=== PATIENT | male | born 1965 | race Caucasian/White ===

== ENCOUNTER 2018-04-14 13:25 | Emergency (ER) | payer MEDICARE, MEDICAID ==
[~2018-04-14] VITALS: Ht 172.7 cm; Wt 113.6 kg
[~2018-04-14 13:25] MED LIST: ALBU8.5H8 INH; CYCL-1 PO; FURO-149 PO; HYDR-565 PO; HYDR-569 PO; LEVA15HF4 INH; LORA1TAB PO; METH-360 PO; METH-603 PO; ONDA8TAB6 PO; POTA20TA19 PO; QUET-1 PO; SPIR25TA PO
[2018-04-14 20:01] VITALS: BP 131/80
[2018-04-14] MEDS ORDERED: levetiracetam 250mg tablet PO ONE (20:05)
[2018-04-14] MEDS ORDERED: ketorolac trometh inj. 60 MG/2 ML VIAL IM ONE (20:05)
[2018-04-14] MEDS ORDERED: AZIT500T5 PO (21:08)
== END 2018-04-14 21:26 | disposition home or self-care (01) ==
LOC: ER 13:26
DX: R55 Syncope and collapse (principal); I50.9 Heart failure, unspecified; G89.29 Other chronic pain; J44.9 Chronic obstructive pulmonary disease, unspecified; Z98.890 Other specified postprocedural states; Z79.899 Other long term (current) drug therapy
CPT/HCPCS: 71045; 93005; 96372; 99284; J1885

== ENCOUNTER 2018-08-18 11:54 | Emergency (ER) | payer MEDICARE, MEDICAID ==
[~2018-08-18] VITALS: Ht 170.2 cm; Wt 105.0 kg
[~2018-08-18 11:54] MED LIST changes: +AZIT500T5 PO
[2018-08-18] MEDS ORDERED: AMOX-422 PO (12:38)
[2018-08-18 12:48] VITALS: BP 132/82
== END 2018-08-18 12:50 | disposition home or self-care (01) ==
LOC: ER 11:54
DX: J06.9 Acute upper respiratory infection, unspecified (principal); I50.9 Heart failure, unspecified; J44.9 Chronic obstructive pulmonary disease, unspecified; G89.29 Other chronic pain; Z86.19 Personal history of other infectious and parasitic diseases; Z98.890 Other specified postprocedural states; Z79.2 Long term (current) use of antibiotics; Z79.899 Other long term (current) drug therapy
CPT/HCPCS: 99283

== ENCOUNTER 2018-10-30 08:58 | Day surgery (SDC) | payer MEDICARE, MEDICAID ==
[~2018-10-30] VITALS: Ht 170.2 cm; Wt 137.8 kg
[2018-10-30] VITALS (8 sets, daily range): BP systolic 110–137; BP diastolic 56–78
[~2018-10-30 08:58] MED LIST changes: +HYDR-4353 PO; +HYDR-4383 PO; -HYDR-565 PO; -HYDR-569 PO; +LIDOcaine 1% 30ml preserv. free vial SQ STA
[2018-10-30] MEDS ORDERED: albumin (human) 25% 100 ML IV solution IV PRN (09:30)
[2018-10-30] MEDS ORDERED: DULR RC (11:17)
[2018-10-30] MEDS ORDERED: CLON-514 PO (11:17)
[2018-10-30] MEDS ORDERED: FURO-150 PO (11:17)
[2018-10-30] MEDS ORDERED: PHE12.5T PO (11:17)
[2018-10-30] MEDS ORDERED: HYDR-4383 PO (11:17)
[2018-10-30] MEDS ORDERED: ENOX40SY7 SUBCUT (11:17)
[2018-10-30] MEDS ORDERED: NA P133E4 RC (11:17)
[2018-10-30] MEDS ORDERED: QUET200T PO (11:17)
[2018-10-30] MEDS ORDERED: POLY17PO10 PO (11:17)
[2018-10-30] MEDS ORDERED: METH-603 PO (11:17)
[2018-10-30] MEDS ORDERED: METH113C20 TOP (11:17)
[2018-10-30] MEDS ORDERED: DOCU-20 PO (11:17)
[2018-10-30] MEDS ORDERED: MAG355OR18 PO (11:17)
[2018-10-30] MEDS ORDERED: MAGN400O6 PO (11:17)
== END 2018-10-30 11:30 ==
LOC: SSTAY O 08:58
PROVIDERS: ATTEND Radiology Vascular & Interventional Radiology
DX: R18.8 Other ascites (principal); I50.9 Heart failure, unspecified; J44.9 Chronic obstructive pulmonary disease, unspecified; G89.29 Other chronic pain; G47.33 Obstructive sleep apnea (adult) (pediatric); J45.998 Other asthma; F10.21 Alcohol dependence, in remission; F32.9 Major depressive disorder, single episode, unspecified; F41.8 Other specified anxiety disorders; F19.21 Other psychoactive substance dependence, in remission; Z87.09 Personal history of other diseases of the respiratory system; Z96.641 Presence of right artificial hip joint; Z91.048 Other nonmedicinal substance allergy status; Z79.2 Long term (current) use of antibiotics; Z87.01 Personal history of pneumonia (recurrent); Z86.19 Personal history of other infectious and parasitic diseases; Z79.891 Long term (current) use of opiate analgesic; Z86.69 Personal history of other diseases of the nervous system and sense organs; Z87.891 Personal history of nicotine dependence; Z86.14 Personal history of Methicillin resistant Staphylococcus aureus infection; Z79.899 Other long term (current) drug therapy; Z98.890 Other specified postprocedural states; Z82.49 Family history of ischemic heart disease and other diseases of the circulatory system
CPT/HCPCS: 49083; J3490; P9047

== ENCOUNTER 2018-11-04 09:11 | Emergency (ER) | payer MEDICARE, MEDICAID ==
[~2018-11-04] VITALS: Ht 162.6 cm; Wt 139.0 kg
[~2018-11-04 09:11] MED LIST changes: -ALBU8.5H8 INH; -AZIT500T5 PO; +CLON-514 PO; -CYCL-1 PO; +DOCU-20 PO; +DULR RC; +ENOX40SY7 SUBCUT; -FURO-149 PO; +FURO-150 PO; -HYDR-4353 PO; -LIDOcaine 1% 30ml preserv. free vial SQ STA; -LORA1TAB PO; +MAG355OR18 PO; +MAGN400O6 PO; -METH-360 PO; +METH113C20 TOP; +NA P133E4 RC; -ONDA8TAB6 PO; +PHE12.5T PO; +POLY17PO10 PO; -POTA20TA19 PO; +QUET200T PO
[2018-11-04 09:41] LABS: BASOPHILS % (AUTO) 0.7 % (0-1); EOSINOPHILS # (AUTO) 0.1 X10'3 (0-0.9); EOSINOPHILS % (AUTO) 3.6 % (0-6); HEMATOCRIT 31.9 % (42.0-52.0); HEMOGLOBIN 10.4 g/dl (14.0-17.9); LYMPHOCYTES # (AUTO) 0.5 X10'3 (1.1-4.8); LYMPHOCYTES % (AUTO) 25.7 % (21-51); MEAN CORPUSCULAR HEMOGLOBIN 31.9 PG (27.0-31.0); MEAN CORPUSCULAR HGB CONC 32.6 % (33.0-36.5); MEAN CORPUSCULAR VOLUME 98.1 FL (78-98); MEAN PLATELET VOLUME 7.8 FL (7.4-10.4); MONOCYTES # (AUTO) 0.3 X10'3 (0-0.9); MONOCYTES % (AUTO) 13.3 % (2-12); NEUTROPHILS # (AUTO) 1.1 X10'3 (1.8-7.7); NEUTROPHILS % (AUTO) 56.7 % (42-75); PLATELET COUNT 62 X10'3 (140-440); RED BLOOD COUNT 3.25 X10'6 (4.70-6.10); RED CELL DISTRIBUTION WIDTH 16.3 % (11.5-14.5); WHITE BLOOD COUNT 1.9 X10'3 (4.5-11.0)
[2018-11-04] MEDS ORDERED: morphine 4 MG/ML inj SYRINge IM ONE (09:45)
[2018-11-04 09:55] LABS: ALANINE AMINOTRANSFERASE 8 U/L (12-78); ALBUMIN/GLOBULIN RATIO 0.4 (1.1-1.5); ALKALINE PHOSPHATASE 99 IU/L (46-116); ANION GAP 3 (8-16); ASPARTATE AMINO TRANSFERASE 16 U/L (10-37); CALCIUM 7.6 MG/DL (8.5-10.1); CHLORIDE 105 MMOL/L (99-107); LIPASE 161 U/L (73-393); POTASSIUM 3.4 MMOL/L (3.5-5.1); SODIUM 141 MMOL/L (135-145); TOTAL CARBON DIOXIDE 32.6 MMOL/L (24-32); TOTAL PROTEIN 6.5 G/DL (6.4-8.2)
[2018-11-04 10:01] LABS: BLOOD UREA NITROGEN 11 MG/DL (7-18); BUN/CREATININE RATIO 13.4 (5.4-32.0); CREATININE 0.82 MG/DL (0.60-1.10); GLUCOSE 99 MG/DL (70-104); eGFR > 90 ML/MIN
[2018-11-04 10:02] LABS: TOTAL CELLS COUNTED 100
[2018-11-04 10:03] LABS: PLATELET ESTIMATE DECREASED
[2018-11-04] MEDS ORDERED: LIDOcaine 1.5% w/epinephrine 1:200,000 5ml ampul IJ ONE (10:15)
[2018-11-04] MEDS ORDERED: LIDOcaine 1% w/epiNEPHrine 1:200,000 30ml vial IJ ONE (10:20)
[2018-11-04] MEDS ORDERED: HYDROcodone/acetaminophen 10/325mg tab PO ONE (10:40)
[2018-11-04] MEDS ORDERED: methadone 10mg tablet PO ONE (10:40)
[2018-11-04 11:59] VITALS: BP 129/62
[2018-11-06] MEDS ORDERED: LIDOcaine 1% 30ml preserv. free vial SQ STA (08:23)
== END 2018-11-04 12:00 | disposition home or self-care (01) ==
LOC: ER 09:11
DX: R18.8 Other ascites (principal); D61.818 Other pancytopenia; M25.551 Pain in right hip; L85.9 Epidermal thickening, unspecified; I50.9 Heart failure, unspecified; J44.9 Chronic obstructive pulmonary disease, unspecified; G89.29 Other chronic pain; Z86.19 Personal history of other infectious and parasitic diseases; Z79.899 Other long term (current) drug therapy; Z96.641 Presence of right artificial hip joint
CPT/HCPCS: 36415; 49083; 80053; 83690; 85025; 96372; 99285; J2270; J3490

== ENCOUNTER 2018-11-06 08:36 | Day surgery (SDC) | payer MEDICARE, MEDICAID ==
[2018-11-06] VITALS (8 sets, daily range): BP systolic 114–124; BP diastolic 62–80
[~2018-11-06] VITALS: Ht 170.2 cm; Wt 117.9 kg
[2018-11-06] MEDS ORDERED: albumin (human) 25% 100 ML IV solution IV PRN (09:20)
[2018-11-06] MEDS ORDERED: normal saline 1000ml 1,000 ML IV PRN (09:20)
[2018-11-06] MEDS ORDERED: oxyCODONE IR 5mg (immed. release) tablet PO ONE (09:40)
[2018-11-06] MEDS ORDERED: HYDR-3193 PO (10:52)
== END 2018-11-06 11:17 ==
LOC: SSTAY O 08:36
PROVIDERS: ATTEND Radiology Diagnostic Radiology
DX: R18.8 Other ascites (principal); I50.9 Heart failure, unspecified; J44.9 Chronic obstructive pulmonary disease, unspecified; G89.29 Other chronic pain; F17.210 Nicotine dependence, cigarettes, uncomplicated; G47.33 Obstructive sleep apnea (adult) (pediatric); K74.69 Other cirrhosis of liver; F10.21 Alcohol dependence, in remission; F32.9 Major depressive disorder, single episode, unspecified; F41.8 Other specified anxiety disorders; F19.21 Other psychoactive substance dependence, in remission; Z87.09 Personal history of other diseases of the respiratory system; Z96.641 Presence of right artificial hip joint; Z86.19 Personal history of other infectious and parasitic diseases; Z86.14 Personal history of Methicillin resistant Staphylococcus aureus infection; Z87.01 Personal history of pneumonia (recurrent); Z91.048 Other nonmedicinal substance allergy status; Z79.2 Long term (current) use of antibiotics; Z79.891 Long term (current) use of opiate analgesic; Z86.69 Personal history of other diseases of the nervous system and sense organs; Z98.890 Other specified postprocedural states; Z79.899 Other long term (current) drug therapy; Z82.49 Family history of ischemic heart disease and other diseases of the circulatory system
CPT/HCPCS: 49083; J7030; P9047

== ENCOUNTER 2018-11-23 07:42 | Day surgery (SDC) | payer MEDICARE, MEDICAID ==
[~2018-11-23] VITALS: Ht 170.2 cm; Wt 132.5 kg
[~2018-11-23 07:42] MED LIST changes: -ENOX40SY7 SUBCUT; -FURO-150 PO; +FURO40TA4 PO; -HYDR-4383 PO; +LACT10SO32 PO; -LEVA15HF4 INH; +LIDOcaine 1% 30ml preserv. free vial SQ STA; -NA P133E4 RC; -PHE12.5T PO; -QUET-1 PO
[2018-11-23 07:52] VITALS: BP 128/81
[2018-11-23] MEDS ORDERED: LACT10SO PO (08:01)
[2018-11-23] MEDS ORDERED: FURO-150 PO (08:01)
[2018-11-23] MEDS ORDERED: albumin (human) 25% 100 ML IV solution IV PRN (08:05)
[2018-11-23 08:30] VITALS: BP 129/75
[2018-11-23] MEDS ORDERED: oxyCODONE IR 5mg (immed. release) tablet PO ONE (08:40)
[2018-11-23 08:45] VITALS: BP 121/75
[2018-11-23 08:54] VITALS: BP 132/88
[2018-11-23 08:55] VITALS: BP 132/88
[2018-11-23 09:05] VITALS: BP 128/77
== END 2018-11-23 09:05 | disposition home or self-care (01) ==
LOC: SSTAY O 07:42
PROVIDERS: ATTEND Radiology Diagnostic Radiology
DX: R18.8 Other ascites (principal); K76.89 Other specified diseases of liver; K74.69 Other cirrhosis of liver; J44.9 Chronic obstructive pulmonary disease, unspecified; I50.9 Heart failure, unspecified; G89.29 Other chronic pain; G47.33 Obstructive sleep apnea (adult) (pediatric); F32.9 Major depressive disorder, single episode, unspecified; F17.210 Nicotine dependence, cigarettes, uncomplicated; F10.21 Alcohol dependence, in remission; F19.11 Other psychoactive substance abuse, in remission; Z87.01 Personal history of pneumonia (recurrent); Z86.19 Personal history of other infectious and parasitic diseases; Z91.048 Other nonmedicinal substance allergy status; Z79.2 Long term (current) use of antibiotics; Z79.891 Long term (current) use of opiate analgesic; Z88.1 Allergy status to other antibiotic agents; Z86.69 Personal history of other diseases of the nervous system and sense organs; Z96.641 Presence of right artificial hip joint; Z86.14 Personal history of Methicillin resistant Staphylococcus aureus infection; F41.8 Other specified anxiety disorders; Z98.890 Other specified postprocedural states; Z79.899 Other long term (current) drug therapy; Z82.49 Family history of ischemic heart disease and other diseases of the circulatory system
CPT/HCPCS: 49083; 87070; J3490

== ENCOUNTER 2018-12-07 07:41 | Day surgery (SDC) | payer MEDICARE, MEDICAID ==
[~2018-12-07] VITALS: Ht 170.2 cm; Wt 125.5 kg
[~2018-12-07 07:41] MED LIST changes: +FURO-150 PO; -FURO40TA4 PO; +LACT10SO PO; -LACT10SO32 PO
[2018-12-07 08:00] VITALS: BP 128/69
[2018-12-07] MEDS ORDERED: enoxaparin 100mg/ml syringe SUBCUT ONE (09:05)
[2018-12-07 09:17] VITALS: BP 112/72
[2018-12-07] MEDS ORDERED: albumin 25% 50mL bottle X 2 BOTTLES IV ONE (09:20)
== END 2018-12-07 09:17 | disposition home or self-care (01) ==
LOC: SSTAY O 07:41
PROVIDERS: ATTEND Radiology Vascular & Interventional Radiology
DX: Z53.21 Procedure and treatment not carried out due to patient leaving prior to being seen by health care provider (principal); R18.8 Other ascites; F17.210 Nicotine dependence, cigarettes, uncomplicated; G47.33 Obstructive sleep apnea (adult) (pediatric); J45.998 Other asthma; F10.21 Alcohol dependence, in remission; F32.9 Major depressive disorder, single episode, unspecified; F41.8 Other specified anxiety disorders; F19.21 Other psychoactive substance dependence, in remission; Z91.048 Other nonmedicinal substance allergy status; Z88.1 Allergy status to other antibiotic agents; Z86.69 Personal history of other diseases of the nervous system and sense organs; Z87.09 Personal history of other diseases of the respiratory system; Z87.19 Personal history of other diseases of the digestive system; Z86.19 Personal history of other infectious and parasitic diseases; Z87.39 Personal history of other diseases of the musculoskeletal system and connective tissue; Z96.641 Presence of right artificial hip joint; Z98.890 Other specified postprocedural states; Z79.899 Other long term (current) drug therapy; Z82.49 Family history of ischemic heart disease and other diseases of the circulatory system
CPT/HCPCS: J1650

== ENCOUNTER 2018-12-14 08:20 | Day surgery (SDC) | payer MEDICARE, MEDICAID ==
[~2018-12-14] VITALS: Ht 170.2 cm; Wt 122.5 kg
[2018-12-14] MEDS ORDERED: albumin 25% 50mL bottle X 2 BOTTLES IV ONE (08:45)
[2018-12-14 09:00] VITALS: BP 154/91
[2018-12-14] MEDS ORDERED: oxyCODONE IR 5mg (immed. release) tablet PO ONE (09:15)
[2018-12-14 09:30] VITALS: BP 121/80
[2018-12-14 09:45] VITALS: BP 134/93
[2018-12-14 10:00] VITALS: BP 122/76
[2018-12-14 10:10] VITALS: BP 131/74
== END 2018-12-14 10:15 | disposition home or self-care (01) ==
LOC: SSTAY O 08:20
PROVIDERS: ATTEND Radiology Diagnostic Radiology
DX: R18.8 Other ascites (principal); K74.60 Unspecified cirrhosis of liver; G47.30 Sleep apnea, unspecified; J45.909 Unspecified asthma, uncomplicated; F17.210 Nicotine dependence, cigarettes, uncomplicated; Z96.641 Presence of right artificial hip joint; Z98.890 Other specified postprocedural states
CPT/HCPCS: 49083; J3490

== ENCOUNTER 2018-12-21 08:08 | Day surgery (SDC) | payer MEDICARE, MEDICAID ==
[~2018-12-21] VITALS: Ht 170.2 cm; Wt 113.3 kg
[~2018-12-21 08:08] MED LIST changes: -MAG355OR18 PO; -MAGN400O6 PO; -METH113C20 TOP; -POLY17PO10 PO
[2018-12-21 08:45] VITALS: BP 129/77
[2018-12-21] MEDS ORDERED: albumin 25% 50mL bottle X 2 BOTTLES IV PRN (08:45)
[2018-12-21] MEDS ORDERED: normal saline 1000ml 1,000 ML IV PRN (08:45)
--- NOTE | 2018-12-21 09:10 | NUR ---
[facility] [employer] ASSESSED ABDOMEN WITH ULTRASOUND. NO FLUID ACCUMULATION WARRANTING PARACENTESIS AT THIS VISIT. PT WAS DISCHARGED WITH HIS WHEELCHAIR VIA [employer] AND RETURNED TO [facility]. PT HAD ALL BELONGINGS.
== END 2018-12-21 09:10 | disposition home or self-care (01) ==
LOC: SSTAY O 08:08
PROVIDERS: ATTEND Radiology Diagnostic Radiology
DX: R18.8 Other ascites (principal); R16.1 Splenomegaly, not elsewhere classified; F17.210 Nicotine dependence, cigarettes, uncomplicated; G47.33 Obstructive sleep apnea (adult) (pediatric); J45.998 Other asthma; F10.21 Alcohol dependence, in remission; F41.8 Other specified anxiety disorders; F32.9 Major depressive disorder, single episode, unspecified; G47.00 Insomnia, unspecified; F15.11 Other stimulant abuse, in remission; Z86.14 Personal history of Methicillin resistant Staphylococcus aureus infection; Z88.1 Allergy status to other antibiotic agents; Z91.048 Other nonmedicinal substance allergy status; Z79.891 Long term (current) use of opiate analgesic; Z86.69 Personal history of other diseases of the nervous system and sense organs; Z87.09 Personal history of other diseases of the respiratory system; Z86.19 Personal history of other infectious and parasitic diseases; Z96.641 Presence of right artificial hip joint; Z98.890 Other specified postprocedural states; Z79.899 Other long term (current) drug therapy; Z82.49 Family history of ischemic heart disease and other diseases of the circulatory system
CPT/HCPCS: 76705; J3490; J7030

== ENCOUNTER 2019-02-04 17:59 | Emergency (ER) | payer MEDICARE, MEDICAID ==
[~2019-02-04] VITALS: Ht 170.2 cm; Wt 106.8 kg
[~2019-02-04 17:59] MED LIST changes: -LIDOcaine 1% 30ml preserv. free vial SQ STA
[2019-02-04] MEDS: HYDROcodone/acetaminophen 10/325mg tab PO ONE ×2 (18:45→21:19)
--- NOTE | 2019-02-04 20:15 | NUR ---
patient on methadone for pain
[2019-02-04] MEDS ORDERED: ondansetron 4mg rapidly disintigrating tab PO ONE (21:30)
[2019-02-04] MEDS ORDERED: diazepam 5mg tablet PO ONE (21:30)
[2019-02-04] MEDS ORDERED: HYDROcodone/acetaminophen 10/325mg tab PO ONE (21:30)
[2019-02-04] MEDS ORDERED: VAL5T PO (22:17)
[2019-02-04] MEDS ORDERED: ONDA4TAB6 PO (22:17)
[2019-02-04] MEDS ORDERED: HYDR-3965 PO (22:17)
[2019-02-04] MEDS ORDERED: METH500T PO (22:17)
[2019-02-04 23:06] VITALS: BP 124/78
== END 2019-02-04 23:09 | disposition home or self-care (01) ==
LOC: ER 18:00
DX: M62.830 Muscle spasm of back (principal); J44.9 Chronic obstructive pulmonary disease, unspecified; I50.9 Heart failure, unspecified; G89.29 Other chronic pain; Z98.890 Other specified postprocedural states; Z88.1 Allergy status to other antibiotic agents; Z79.899 Other long term (current) drug therapy
CPT/HCPCS: 72070; 72100; 73502; 99284

== ENCOUNTER 2019-04-14 10:18 | Emergency (ER) | payer MEDICARE, MEDICAID ==
[~2019-04-14] VITALS: Ht 172.7 cm; Wt 106.8 kg
[~2019-04-14 10:18] MED LIST changes: +METH500T PO; +ONDA4TAB6 PO
[2019-04-14 11:41] VITALS: BP_SYST 139
[2019-04-14] MEDS ORDERED: GUAI237S46 PO (11:57)
[2019-04-14] MEDS ORDERED: BENZ-16 PO (11:57)
[2019-04-14 12:12] VITALS: BP_DIAS 123
== END 2019-04-14 12:16 | disposition home or self-care (01) ==
LOC: ER 10:18
DX: J40 Bronchitis, not specified as acute or chronic (principal); I50.9 Heart failure, unspecified; J44.9 Chronic obstructive pulmonary disease, unspecified; G89.29 Other chronic pain; Z98.890 Other specified postprocedural states; Z88.1 Allergy status to other antibiotic agents; Z79.899 Other long term (current) drug therapy
CPT/HCPCS: 71046; 99284

== ENCOUNTER 2019-08-06 09:45 | Emergency (ER) | payer MEDICARE, MEDICAID ==
[~2019-08-06] VITALS: Ht 170.2 cm; Wt 90.0 kg
[2019-08-06] MEDS ORDERED: GABA300C PO (10:08)
[2019-08-06] MEDS ORDERED: LORazepam 1 MG tablet PO ONE (10:10)
[2019-08-06] MEDS ORDERED: morphine 4 MG/ML inj SYRINge IM ONE (10:10)
[2019-08-06] MEDS ORDERED: ketorolac trometh inj. 60 MG/2 ML VIAL IM ONE (10:10)
[2019-08-06 11:31] VITALS: BP 168/71
== END 2019-08-06 11:33 | disposition home or self-care (01) ==
LOC: ER 09:46
DX: G82.22 Paraplegia, incomplete (principal); G62.9 Polyneuropathy, unspecified; G89.29 Other chronic pain; M54.5 Low back pain; I50.9 Heart failure, unspecified; J44.9 Chronic obstructive pulmonary disease, unspecified; Z98.890 Other specified postprocedural states; Z88.1 Allergy status to other antibiotic agents; Z79.899 Other long term (current) drug therapy
CPT/HCPCS: 96372; 99283; J1885; J2270

== ENCOUNTER 2020-01-15 12:45 | Emergency (ER) | payer MEDICARE, MEDICAID ==
[~2020-01-15] VITALS: Ht 172.7 cm; Wt 80.9 kg
[~2020-01-15 12:45] MED LIST changes: +GABA300C PO
[2020-01-15 13:17] VITALS: BP 118/82
[2020-01-15 14:02] LABS: BASOPHILS % (AUTO) 0.8 % (0-1); EOSINOPHILS # (AUTO) 0.1 X10'3 (0-0.9); EOSINOPHILS % (AUTO) 1.9 % (0-6); HEMATOCRIT 45.3 % (42.0-52.0); HEMOGLOBIN 15.3 g/dl (14.0-17.9); LYMPHOCYTES # (AUTO) 1.1 X10'3 (1.1-4.8); LYMPHOCYTES % (AUTO) 24.4 % (21-51); MEAN CORPUSCULAR HEMOGLOBIN 32.8 PG (27.0-31.0); MEAN CORPUSCULAR HGB CONC 33.8 g/dL (33.0-36.5); MEAN CORPUSCULAR VOLUME 96.9 FL (78-98); MEAN PLATELET VOLUME 9.6 FL (7.4-10.4); MONOCYTES # (AUTO) 0.3 X10'3 (0-0.9); MONOCYTES % (AUTO) 6.9 % (2-12); NEUTROPHILS # (AUTO) 2.9 X10'3 (1.8-7.7); RED BLOOD COUNT 4.67 X10'6 (4.70-6.10); RED CELL DISTRIBUTION WIDTH 15.3 % (11.5-14.5); WHITE BLOOD COUNT 4.4 X10'3 (4.5-11.0)
[2020-01-15 14:08] LABS: PLATELET COUNT 45 X10'3 (140-440)
[2020-01-15 14:16] LABS: ALANINE AMINOTRANSFERASE 18 U/L (12-78); ALBUMIN 3.6 G/DL (3.4-5.0); ALBUMIN/GLOBULIN RATIO 0.9 (1.1-1.5); ALKALINE PHOSPHATASE 117 IU/L (46-116); ANION GAP 6 (8-16); ASPARTATE AMINO TRANSFERASE 15 U/L (10-37); BILIRUBIN,TOTAL 1.5 MG/DL (0.1-1.0); BLOOD UREA NITROGEN 11 MG/DL (7-18); BUN/CREATININE RATIO 12.9 (5.4-32.0); CALCIUM 8.8 MG/DL (8.5-10.1); CHLORIDE 101 MMOL/L (99-107); CREATININE 0.85 MG/DL (0.60-1.10); GLUCOSE 155 MG/DL (70-104); SODIUM 142 MMOL/L (135-145); TOTAL CARBON DIOXIDE 34.6 MMOL/L (24-32); TOTAL PROTEIN 7.4 G/DL (6.4-8.2); eGFR > 90 ML/MIN
[2020-01-15 14:17] LABS: POTASSIUM 2.9 MMOL/L (3.5-5.1)
[2020-01-15] MEDS ORDERED: potassium Cl 20 mEq SR tablet PO ONE (15:55)
[2020-01-15] MEDS ORDERED: FURO-150 PO (16:13)
[2020-01-15] MEDS ORDERED: METH-603 PO (16:13)
[2020-01-15] MEDS ORDERED: ALBU8.5H8 IH (16:13)
[2020-01-15] MEDS ORDERED: CLON-513 PO (16:13)
[2020-01-15] MEDS ORDERED: AMOX-117 PO (16:13)
[2020-01-15] MEDS ORDERED: POTA20PA40 PO (16:13)
== END 2020-01-15 17:09 | disposition home or self-care (01) ==
LOC: ER 12:47
DX: J18.9 Pneumonia, unspecified organism (principal); E87.6 Hypokalemia; K76.9 Liver disease, unspecified; G89.29 Other chronic pain; I50.9 Heart failure, unspecified; M54.9 Dorsalgia, unspecified; J44.9 Chronic obstructive pulmonary disease, unspecified; Z86.19 Personal history of other infectious and parasitic diseases; F17.200 Nicotine dependence, unspecified, uncomplicated; Z72.89 Other problems related to lifestyle; Z79.899 Other long term (current) drug therapy; Z88.1 Allergy status to other antibiotic agents
CPT/HCPCS: 36415; 71045; 80053; 84484; 85025; 93005; 99285

== ENCOUNTER 2020-04-08 20:53 | Emergency (ER) | payer MEDICARE, MEDICAID ==
[~2020-04-08] VITALS: Ht 172.7 cm; Wt 90.0 kg
[~2020-04-08 20:53] MED LIST changes: +ALBU8.5H8 IH; +CLON-513 PO; +POTA20PA40 PO
[2020-04-08 22:35] VITALS: BP 115/69
== END 2020-04-09 00:06 | disposition home or self-care (01) ==
LOC: EEVIPCON 20:53 → ER 20:53
DX: R60.0 Localized edema (principal); I50.9 Heart failure, unspecified; J44.9 Chronic obstructive pulmonary disease, unspecified; G89.29 Other chronic pain; F17.200 Nicotine dependence, unspecified, uncomplicated; Z87.01 Personal history of pneumonia (recurrent); Z86.19 Personal history of other infectious and parasitic diseases; Z98.890 Other specified postprocedural states; Z72.89 Other problems related to lifestyle; Z88.1 Allergy status to other antibiotic agents; Z79.899 Other long term (current) drug therapy
CPT/HCPCS: 99284

== ENCOUNTER 2020-04-23 13:39 | Emergency (ER) | payer MEDICARE, MEDICAID ==
[~2020-04-23] VITALS: Ht 170.2 cm; Wt 67.5 kg
[2020-04-23 13:49] VITALS: BP 137/76
[2020-04-23] MEDS ORDERED: CLIN-97 PO (18:49)
== END 2020-04-23 19:00 | disposition home or self-care (01) ==
LOC: ER 13:40
DX: L03.115 Cellulitis of right lower limb (principal); N50.89 Other specified disorders of the male genital organs; I50.9 Heart failure, unspecified; J44.9 Chronic obstructive pulmonary disease, unspecified; G89.29 Other chronic pain; Z86.19 Personal history of other infectious and parasitic diseases; Z72.89 Other problems related to lifestyle; Z98.890 Other specified postprocedural states; Z79.899 Other long term (current) drug therapy; Z88.8 Allergy status to other drugs, medicaments and biological substances
CPT/HCPCS: 99283

== ENCOUNTER 2020-05-01 12:52 | Emergency (ER) | payer MEDICARE, MEDICAID ==
[~2020-05-01] VITALS: Ht 170.2 cm; Wt 90.9 kg
[~2020-05-01 12:52] MED LIST changes: +CLIN-97 PO
[2020-05-01 15:59] VITALS: BP 118/73
[2020-05-01] MEDS ORDERED: furosemide 20MG tablet PO ONE (16:35)
[2020-05-01] MEDS ORDERED: FURO-150 PO (16:52)
[2020-05-02] MEDS ORDERED: FURO-150 PO (18:25)
[2020-05-02] MEDS ORDERED: LACT10SO PO (18:25)
== END 2020-05-01 17:00 | disposition home or self-care (01) ==
LOC: EEVIPCON 12:53 → ER 12:53
DX: R60.9 Edema, unspecified (principal); N50.89 Other specified disorders of the male genital organs; M79.89 Other specified soft tissue disorders; I50.9 Heart failure, unspecified; J44.9 Chronic obstructive pulmonary disease, unspecified; G89.29 Other chronic pain; Z87.01 Personal history of pneumonia (recurrent); Z86.19 Personal history of other infectious and parasitic diseases; Z98.890 Other specified postprocedural states; Z72.89 Other problems related to lifestyle; Z88.1 Allergy status to other antibiotic agents; Z79.2 Long term (current) use of antibiotics; Z79.899 Other long term (current) drug therapy
CPT/HCPCS: 99283

== ENCOUNTER 2020-05-02 15:06 | Emergency (ER) | payer MEDICARE, MEDICAID ==
[~2020-05-02] VITALS: Ht 170.2 cm; Wt 100.0 kg
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
[2020-05-02] MEDS ORDERED: furosemide 20MG tablet PO ONE (15:55)
[2020-05-02 16:07] VITALS: BP 128/82
--- NOTE | 2020-05-02 16:25 | NUR ---
asked pt to give ua pt stated that he is to swollen down there to urinate, i had a tech try to assist but it did not work. i told pt that we will have to do a straight cath in order to get urine, he stated that he will try again.
--- NOTE | 2020-05-02 17:01 | NUR ---
labs and ua sent to lab, pt was able to urinate in urinal
[2020-05-02 17:12] LABS: CLARITY,URINE CLEAR (Clear); GLUCOSE, URINE NEGATIVE (Neg); KETONES,URINE NEGATIVE (Neg); LEUKOCYTE ESTERASE ,URINE NEGATIVE (Neg); NITRITES, URINE NEGATIVE (Neg); OCCULT BLOOD,URINE NEGATIVE (Neg); PH,URINE 6.5 (4.8-8.0); PROTEIN,URINE NEGATIVE (Neg); UA COLLECTION TYPE URINAL
[2020-05-02 17:13] LABS: COLOR,URINE DARK YELLOW (Yellow)
[2020-05-02 17:16] LABS: BASOPHILS % (AUTO) 0.7 % (0-1); EOSINOPHILS % (AUTO) 0.7 % (0-6); HEMATOCRIT 37.1 % (42.0-52.0); HEMOGLOBIN 12.6 g/dl (14.0-17.9); LYMPHOCYTES # (AUTO) 0.7 X10'3 (1.1-4.8); MEAN CORPUSCULAR HEMOGLOBIN 34.9 PG (27.0-31.0); MEAN CORPUSCULAR VOLUME 102.7 FL (78-98); MEAN PLATELET VOLUME 8.4 FL (7.4-10.4); MONOCYTES # (AUTO) 0.3 X10'3 (0-0.9); MONOCYTES % (AUTO) 8.3 % (2-12); NEUTROPHILS # (AUTO) 2.8 X10'3 (1.8-7.7); NEUTROPHILS % (AUTO) 72.3 % (42-75); PLATELET COUNT 51 X10'3 (140-440); RED BLOOD COUNT 3.61 X10'6 (4.70-6.10); RED CELL DISTRIBUTION WIDTH 15.4 % (11.5-14.5); WHITE BLOOD COUNT 3.8 X10'3 (4.5-11.0)
[2020-05-02 17:25] LABS: URINE AMPHETAMINE SCREEN NEGATIVE (Neg); URINE BARBITUATE SCREEN NEGATIVE (Neg); URINE BENZODIAZEPINES SCREEN NEGATIVE (Neg); URINE CANNABINOID SCREEN NEGATIVE (Neg); URINE COCAINE SCREEN NEGATIVE (Neg); URINE METHADONE SCREEN POSITIVE (Neg); URINE OPIATE SCREEN NEGATIVE (Neg); URINE PHENCYCLIDINE SCREEN NEGATIVE (Neg)
--- NOTE | 2020-05-02 17:28 | NUR ---
AWAITING LAB RESULTS, PT MADE AWARE
[2020-05-02 17:31] LABS: ALANINE AMINOTRANSFERASE 26 U/L (12-78); ALBUMIN 2.9 G/DL (3.4-5.0); ALBUMIN/GLOBULIN RATIO 0.7 (1.1-1.5); ALKALINE PHOSPHATASE 151 IU/L (46-116); ANION GAP 2 (8-16); ASPARTATE AMINO TRANSFERASE 30 U/L (10-37); BILIRUBIN,TOTAL 1.6 MG/DL (0.1-1.0); BLOOD UREA NITROGEN 11 MG/DL (7-18); BUN/CREATININE RATIO 15.5 (5.4-32.0); CALCIUM 8.4 MG/DL (8.5-10.1); CHLORIDE 103 MMOL/L (99-107); CREATININE 0.71 MG/DL (0.60-1.10); GLUCOSE 92 MG/DL (70-104); SODIUM 140 MMOL/L (135-145); TOTAL CARBON DIOXIDE 35.2 MMOL/L (24-32); TOTAL PROTEIN 7.3 G/DL (6.4-8.2); eGFR > 90 ML/MIN
[2020-05-02 17:33] LABS: POTASSIUM 2.8 MMOL/L (3.5-5.1)
[2020-05-02] MEDS ORDERED: potassium Cl 20 mEq SR tablet PO STA (17:42)
[2020-05-02] MEDS ORDERED: lactulose 20gm/30ml cup PO ONE (17:45)
[2020-05-02] MEDS ORDERED: potassium Cl 10 mEq/100mL bag IV ONE (17:50)
[2020-05-02] MEDS ORDERED: FURO-150 PO (18:25)
[2020-05-02] MEDS ORDERED: LACT10SO PO (18:25)
--- NOTE | 2020-05-02 18:32 | NUR ---
pt was given rx and discharge paperwork and was accompanied out by security because pt was not wanting to leave in a timely manner
== END 2020-05-02 18:35 | disposition home or self-care (01) ==
LOC: ER 15:06
DX: R60.0 Localized edema (principal); R82.5 Elevated urine levels of drugs, medicaments and biological substances; I50.9 Heart failure, unspecified; J44.9 Chronic obstructive pulmonary disease, unspecified; G89.29 Other chronic pain; Z87.01 Personal history of pneumonia (recurrent); Z86.19 Personal history of other infectious and parasitic diseases; Z98.890 Other specified postprocedural states; Z72.89 Other problems related to lifestyle; Z88.1 Allergy status to other antibiotic agents; Z79.2 Long term (current) use of antibiotics; Z79.899 Other long term (current) drug therapy
CPT/HCPCS: 36415; 80053; 80305; 81003; 82140; 83735; 85025; 99284

== ENCOUNTER 2020-05-10 07:52 | Emergency (ER) | payer MEDICARE, MEDICAID ==
[~2020-05-10] VITALS: Ht 170.2 cm; Wt 91.0 kg
[2020-05-10] MEDS ORDERED: ketorolac trometh. 30mg/ml inj. IV ONE (08:05)
[2020-05-10] MEDS ORDERED: LORazepam 2 mg/ml vial IV ONE (08:05)
[2020-05-10 08:40] LABS: EOSINOPHILS # (AUTO) 0.2 X10'3 (0-0.9); EOSINOPHILS % (AUTO) 4.5 % (0-6); HEMATOCRIT 34.5 % (42.0-52.0); HEMOGLOBIN 11.6 g/dl (14.0-17.9); LYMPHOCYTES # (AUTO) 0.8 X10'3 (1.1-4.8); LYMPHOCYTES % (AUTO) 22.6 % (21-51); MEAN CORPUSCULAR HEMOGLOBIN 34.8 PG (27.0-31.0); MEAN CORPUSCULAR HGB CONC 33.5 g/dL (33.0-36.5); MEAN CORPUSCULAR VOLUME 103.8 FL (78-98); MEAN PLATELET VOLUME 8.1 FL (7.4-10.4); MONOCYTES # (AUTO) 0.4 X10'3 (0-0.9); MONOCYTES % (AUTO) 10.2 % (2-12); NEUTROPHILS # (AUTO) 2.2 X10'3 (1.8-7.7); NEUTROPHILS % (AUTO) 61.7 % (42-75); PLATELET COUNT 65 X10'3 (140-440); RED BLOOD COUNT 3.32 X10'6 (4.70-6.10); RED CELL DISTRIBUTION WIDTH 15.3 % (11.5-14.5); WHITE BLOOD COUNT 3.6 X10'3 (4.5-11.0)
[2020-05-10 08:58] LABS: ALANINE AMINOTRANSFERASE 26 U/L (12-78); ALBUMIN 2.5 G/DL (3.4-5.0); ALBUMIN/GLOBULIN RATIO 0.6 (1.1-1.5); ALKALINE PHOSPHATASE 150 IU/L (46-116); ANION GAP 3 (8-16); ASPARTATE AMINO TRANSFERASE 40 U/L (10-37); BILIRUBIN,TOTAL 1.2 MG/DL (0.1-1.0); BLOOD UREA NITROGEN 10 MG/DL (7-18); BUN/CREATININE RATIO 13.5 (5.4-32.0); CHLORIDE 109 MMOL/L (99-107); CREATININE 0.74 MG/DL (0.60-1.10); GLUCOSE 101 MG/DL (70-104); MAGNESIUM 1.8 MG/DL (1.5-2.4); SODIUM 148 MMOL/L (135-145); TOTAL CARBON DIOXIDE 35.6 MMOL/L (24-32); TOTAL PROTEIN 6.6 G/DL (6.4-8.2); eGFR > 90 ML/MIN
[2020-05-10 09:00] LABS: POTASSIUM 2.7 MMOL/L (3.5-5.1)
[2020-05-10] MEDS ORDERED: potassium Cl 20 mEq SR tablet PO STA (09:04)
[2020-05-10] MEDS ORDERED: POTA20TA19 PO (09:19)
[2020-05-10] MEDS ORDERED: SPIR50TA5 PO (09:19)
[2020-05-10 09:30] LABS: CLARITY,URINE SLIGHTLY CLOUDY (Clear); COLOR,URINE YELLOW (Yellow); GLUCOSE, URINE NEGATIVE (Neg); KETONES,URINE NEGATIVE (Neg); LEUKOCYTE ESTERASE ,URINE NEGATIVE (Neg); NITRITES, URINE NEGATIVE (Neg); OCCULT BLOOD,URINE NEGATIVE (Neg); PH,URINE 7.5 (4.8-8.0); PROTEIN,URINE NEGATIVE (Neg)
[2020-05-10] MEDS ORDERED: OXYC-138 PO (09:35)
[2020-05-10 09:36] LABS: UA COLLECTION TYPE STRAIGHT CATH
[2020-05-10 09:37] LABS: AMORPHOUS PHOSPHATES 2+; MUCUS STRANDS FEW /LPF (Neg); SQUAMOUS EPITHELIAL CELL,UR FEW /LPF (FEW)
[2020-05-10 09:40] LABS: RBC,URINE 0-2 /HPF (0-2); WBC,URINE 0-4 /HPF (0-4)
[2020-05-10 09:41] LABS: TRANSITIONAL EPI CELLS,URINE FEW /HPF
[2020-05-10 09:42] LABS: BACTERIA,URINE FEW /HPF (Neg)
[2020-05-10 10:13] VITALS: BP 120/85
== END 2020-05-10 11:01 | disposition home or self-care (01) ==
LOC: ER 07:53
DX: M79.10 Myalgia, unspecified site (principal); E87.6 Hypokalemia; K74.60 Unspecified cirrhosis of liver; I50.9 Heart failure, unspecified; J44.9 Chronic obstructive pulmonary disease, unspecified; F17.210 Nicotine dependence, cigarettes, uncomplicated; G89.29 Other chronic pain; Z86.19 Personal history of other infectious and parasitic diseases; Z72.89 Other problems related to lifestyle; Z98.890 Other specified postprocedural states; Z88.8 Allergy status to other drugs, medicaments and biological substances; Z79.899 Other long term (current) drug therapy; Z79.2 Long term (current) use of antibiotics
CPT/HCPCS: 36415; 71045; 80053; 81001; 83605; 83735; 84145; 85025; 85610; 96374; 96375; 99284; J1885; J2060

== ENCOUNTER 2020-06-23 08:34 | Day surgery (SDC) | payer MEDICARE, MEDICAID ==
[2020-06-23] VITALS (7 sets, daily range): BP systolic 109–125; BP diastolic 67–75
[~2020-06-23] VITALS: Ht 167.6 cm; Wt 103.7 kg
[~2020-06-23 08:34] MED LIST changes: +OXYC-138 PO; +SPIR50TA5 PO
[2020-06-23] MEDS ORDERED: albumin 25% 100mL bottle x 1 IV PRN (08:50)
[2020-06-23] MEDS ORDERED: normal saline 1000ml 1,000 ML IV PRN (08:50)
[2020-06-23] MEDS ORDERED: HYDR-3972 PO (09:13)
[2020-06-23] MEDS ORDERED: PROM25TA14 PO (09:15)
== END 2020-06-23 11:45 | disposition home or self-care (01) ==
LOC: SSTAY O 08:34
PROVIDERS: ATTEND Radiology Vascular & Interventional Radiology
DX: R18.8 Other ascites (principal); K74.60 Unspecified cirrhosis of liver; I50.9 Heart failure, unspecified; J44.9 Chronic obstructive pulmonary disease, unspecified; G89.29 Other chronic pain; Z88.5 Allergy status to narcotic agent; Z91.09 Other allergy status, other than to drugs and biological substances; Z87.01 Personal history of pneumonia (recurrent); Z86.19 Personal history of other infectious and parasitic diseases; Z79.899 Other long term (current) drug therapy
CPT/HCPCS: 49083; P9047

== ENCOUNTER 2020-06-30 07:27 | Day surgery (SDC) | payer MEDICARE, MEDICAID ==
[~2020-06-30] VITALS: Ht 170.2 cm; Wt 100.7 kg
[2020-06-30] VITALS (7 sets, daily range): BP systolic 110–131; BP diastolic 65–78
[~2020-06-30 07:27] MED LIST changes: -ALBU8.5H8 IH; -CLIN-97 PO; -CLON-513 PO; -DOCU-20 PO; -DULR RC; -GABA300C PO; +HYDR-3972 PO; -METH-603 PO; -METH500T PO; -ONDA4TAB6 PO; -OXYC-138 PO; -POTA20PA40 PO; +PROM25TA14 PO; -SPIR25TA PO; -SPIR50TA5 PO
[2020-06-30] MEDS ORDERED: normal saline 1000ml 1,000 ML IV PRN (07:50)
[2020-06-30] MEDS ORDERED: albumin 25% 100mL bottle x 1 IV PRN (07:50)
== END 2020-06-30 11:30 | disposition home or self-care (01) ==
LOC: SSTAY O 07:27
PROVIDERS: ATTEND Radiology Vascular & Interventional Radiology
DX: R18.8 Other ascites (principal); I50.9 Heart failure, unspecified; J44.9 Chronic obstructive pulmonary disease, unspecified; K74.60 Unspecified cirrhosis of liver; Z87.01 Personal history of pneumonia (recurrent); Z86.19 Personal history of other infectious and parasitic diseases; G89.29 Other chronic pain; Z88.1 Allergy status to other antibiotic agents; Z91.09 Other allergy status, other than to drugs and biological substances; Z72.89 Other problems related to lifestyle; F17.210 Nicotine dependence, cigarettes, uncomplicated; Z79.899 Other long term (current) drug therapy
CPT/HCPCS: 49083; P9047